=== PATIENT | female | born 1990 | race Caucasian/White ===

== ENCOUNTER 2017-12-25 13:01 | Outpatient (CLI) | payer MEDICAID ==
[~2017-12-25] VITALS: Ht 165.1 cm; Wt 90.9 kg
[~2017-12-25 13:01] MED LIST: BIRTH CONTROL
[2017-12-25 13:25] VITALS: BP 105/57
[2017-12-25] MEDS ORDERED: PREN1TAB60 PO (16:49)
== END 2017-12-25 17:04 ==
LOC: LDOP 13:01
PROVIDERS: ATTEND Obstetrics & Gynecology
DX: O46.92 Antepartum hemorrhage, unspecified, second trimester (principal); Z3A.23 23 weeks gestation of pregnancy
CPT/HCPCS: 59025; 76815; 99201; G0463

== ENCOUNTER 2018-04-16 13:40 | Inpatient (IN) | payer MEDICAID ==
[~2018-04-16] VITALS: Ht 162.6 cm; Wt 105.0 kg
[~2018-04-16 13:40] MED LIST changes: +PREN1TAB60 PO
[2018-04-16] MEDS ORDERED: LACTATED RINGERS 1,000 ML IV SCH ×3 (14:02→16:08)
[2018-04-16] MEDS ORDERED: OXYTOCIN 30U/ 0.9% NaCL 500ML 500 ML IV SCH (14:02)
[2018-04-16] MEDS ORDERED: NEWBORN KIT ONE (14:05)
[2018-04-16] MEDS ORDERED: METOCLOPRAMIDE 5 MG/ML, 2ML ONE (14:28)
[2018-04-16] MEDS ORDERED: SODIUM CITRATE/CITRIC ACID 30 ML UDC ONE (14:28)
[2018-04-16] MEDS ORDERED: OXYTOCIN 30U/ 0.9% NaCL 500ML 500 ML ONE (14:29)
[2018-04-16] MEDS ORDERED: SODIUM CITRATE/CITRIC ACID 30 ML UDC PO ONE (14:30)
[2018-04-16] MEDS ORDERED: METOCLOPRAMIDE 5 MG/ML, 2ML IV ONE (14:30)
[2018-04-16] MEDS ORDERED: LACTATED RINGERS 1,000 ML IVBOLUS ONE (14:30)
[2018-04-16 14:37] LABS: BASOPHILS # (AUTO) 0.04 x10^3/uL (0-0.1); BASOPHILS % (AUTO) 0 % (0-1); EOSINOPHILS # (AUTO) 0.04 x10^3/uL (0-0.4); EOSINOPHILS % (AUTO) 0 % (1-7); LYMPHOCYTES # (AUTO) 2.88 x10^3/uL (1-3.4); LYMPHOCYTES % (AUTO) 25 % (22-44); MD NO; MEAN CORPUSCULAR HEMOGLOBIN 27.4 pg (27.0-34.8); MEAN CORPUSCULAR HGB CONC 32.8 g/dL (32.4-35.8); MEAN CORPUSCULAR VOLUME 83.6 fL (80-100); MEAN PLATELET VOLUME 8.5 fL (7.4-10.4); MONOCYTES # (AUTO) 0.66 x10^3/uL (0.2-0.8); MONOCYTES % (AUTO) 6 % (2-9); NEUTROPHILS # (AUTO) 7.75 x10^3/uL (1.8-6.8); NEUTROPHILS % (AUTO) 68 % (42-75); PLATELET COUNT 270 x10^3/uL (130-400); RED BLOOD COUNT 3.47 x10^6/uL (3.82-5.3); RED CELL DISTRIBUTION WIDTH 13.7 % (9.6-15.2)
[2018-04-16 14:54] LABS: AMPHETAMINE SCREEN, URINE Negative (Negative); BARBITURATE SCREEN, URINE Negative (Negative); BENZODIAZEPINE SCREEN, URINE Negative (Negative); CANNABINOID SCREEN, URINE Positive (Negative); COCAINE SCREEN, URINE Negative (Negative); METHADONE SCREEN, URINE Negative (Negative); OPIATE SCREEN, URINE Negative (Negative)
[2018-04-16 15:24] VITALS: BP 111/71
[2018-04-16] MEDS: LACTATED RINGERS 1,000 ML IV SCH (16:08)
[2018-04-16] MEDS: OXYTOCIN 30U/ 0.9% NaCL 500ML 500 ML IV SCH (16:08)
[2018-04-16] MEDS ORDERED: GLYCOPYRROLATE 0.2MG/1ML, 5ML ONE (16:15)
[2018-04-16] MEDS ORDERED: ONDANSETRON 2MG/ML, 2ML ONE (16:15)
[2018-04-16] MEDS ORDERED: PHENYLEPHRINE 10 MG/ML ONE (16:15)
[2018-04-16] MEDS ORDERED: ACETAMINOPHEN 325 MG TABLET PO PRN ×2 (16:30)
[2018-04-16] MEDS ORDERED: MEASLES,MUMPS&RUBELLA VACC/PF 0.5 ML SQ-VACC PRN (16:30)
[2018-04-16] MEDS ORDERED: CALCIUM CARBONATE 500 MG TAB.CHEW PO PRN (16:30)
[2018-04-16] MEDS ORDERED: ONDANSETRON 2MG/ML, 2ML IV PRN (16:30)
[2018-04-16] MEDS ORDERED: morphine SULFATE 10 MG/ML, 1ML IVPush PRN ×2 (16:30)
[2018-04-16] MEDS ORDERED: OXYcodone/APAP 5/325MG TABLET PO PRN (16:30)
[2018-04-16] MEDS ORDERED: DIPH,PERTUSS(ACELL),TET VAC/PF NC IM-VACC PRN (16:30)
[2018-04-16] MEDS ORDERED: MISOPROSTOL 200 MCG TABLET PR PRN (16:30)
[2018-04-16] MEDS ORDERED: RHOGAM FROM BLOOD BANK 1 NOTE EA IM/IV ONE (16:30)
[2018-04-16] MEDS ORDERED: MEPERIDINE/PF 50 MG/ML ONE (17:26)
[2018-04-16] MEDS ORDERED: MEPERIDINE/PF 25MG/0.5ML IVPush PRN ×2 (17:30)
[2018-04-16] MEDS ORDERED: KETOROLAC 30 MG/1 ML ONE (18:07)
[2018-04-16] MEDS ORDERED: OXYcodone 5 MG/5 ML ORAL.SOL UDC ONE (18:08)
[2018-04-16] MEDS: KETOROLAC 30 MG/1 ML IV SCH (18:09)
[2018-04-16] MEDS ORDERED: OXYcodone 5 MG/5 ML ORAL.SOL UDC PO PRN (18:30)
[2018-04-16 19:36] VITALS: BP 125/85
[2018-04-16] MEDS: DOCUSATE 100 MG CAPSULE PO PRN (23:05)
[2018-04-16] MEDS: OXYcodone/APAP 5/325MG TABLET PO PRN (23:05)
[2018-04-17] MEDS: KETOROLAC 30 MG/1 ML IV SCH ×5 (00:22→23:13)
[2018-04-17 00:44] VITALS: BP 117/73
[2018-04-17] MEDS: OXYTOCIN 30U/ 0.9% NaCL 500ML 500 ML IV SCH ×2 (02:08→12:08)
[2018-04-17] MEDS: LACTATED RINGERS 1,000 ML IV SCH ×2 (02:08→12:08)
[2018-04-17] MEDS: OXYcodone/APAP 5/325MG TABLET PO PRN ×5 (04:39→23:14)
[2018-04-17 04:58] LABS: BASOPHILS # (AUTO) 0.04 x10^3/uL (0-0.1); BASOPHILS % (AUTO) 0 % (0-1); EOSINOPHILS # (AUTO) 0.03 x10^3/uL (0-0.4); EOSINOPHILS % (AUTO) 0 % (1-7); LYMPHOCYTES # (AUTO) 2.53 x10^3/uL (1-3.4); LYMPHOCYTES % (AUTO) 20 % (22-44); MD NO; MEAN CORPUSCULAR HEMOGLOBIN 28.1 pg (27.0-34.8); MEAN CORPUSCULAR VOLUME 85.2 fL (80-100); MONOCYTES # (AUTO) 0.72 x10^3/uL (0.2-0.8); MONOCYTES % (AUTO) 6 % (2-9); NEUTROPHILS # (AUTO) 9.66 x10^3/uL (1.8-6.8); NEUTROPHILS % (AUTO) 74 % (42-75); PLATELET COUNT 217 x10^3/uL (130-400); RED BLOOD COUNT 3.32 x10^6/uL (3.82-5.3); RED CELL DISTRIBUTION WIDTH 13.8 % (9.6-15.2)
[2018-04-17 05:00] VITALS: BP 112/73
[2018-04-17 06:55] VITALS: BP 117/78
[2018-04-17] MEDS: DOCUSATE 100 MG CAPSULE PO PRN (07:45)
[2018-04-17] MEDS: PRENATAL VIT/IRON/FA 1 EACH TABLET PO SCH (07:45)
[2018-04-17 12:30] VITALS: BP 136/85
[2018-04-17] MEDS: SIMETHICONE 80 MG CHEW TAB PO PRN (14:01)
[2018-04-17 14:50] VITALS: BP 135/85
[2018-04-17 19:15] VITALS: BP 115/75
[2018-04-18] MEDS: SIMETHICONE 80 MG CHEW TAB PO PRN ×2 (02:50→08:06)
[2018-04-18] MEDS: OXYcodone/APAP 5/325MG TABLET PO PRN ×3 (06:15→16:33)
[2018-04-18] MEDS: KETOROLAC 30 MG/1 ML IV SCH ×2 (06:15→12:59)
[2018-04-18 07:50] VITALS: BP 130/87
[2018-04-18] MEDS: DOCUSATE 100 MG CAPSULE PO PRN ×3 (08:06→19:54)
[2018-04-18] MEDS: PRENATAL VIT/IRON/FA 1 EACH TABLET PO SCH (08:23)
[2018-04-18] MEDS: IBUPROFEN 600 MG TABLET PO PRN (19:54)
[2018-04-18 21:00] VITALS: BP 121/78
[2018-04-19] MEDS: OXYcodone/APAP 5/325MG TABLET PO PRN ×3 (00:05→09:09)
[2018-04-19] MEDS: IBUPROFEN 600 MG TABLET PO PRN ×2 (02:43→09:08)
[2018-04-19 09:00] VITALS: BP 137/90
[2018-04-19] MEDS: PRENATAL VIT/IRON/FA 1 EACH TABLET PO SCH (09:00)
[2018-04-19] MEDS: DOCUSATE 100 MG CAPSULE PO PRN (09:08)
[2018-04-19] MEDS ORDERED: OXYC-302 PO (13:35)
[2018-04-19] MEDS ORDERED: IBUP-1222 PO (13:35)
== END 2018-04-19 17:03 | disposition home or self-care (01) | DRG 788 ==
LOC: LDIP 13:41 → 2NW 19:20
PROVIDERS: ADMIT Obstetrics & Gynecology; ATTEND Obstetrics & Gynecology
PROC: 10D00Z1 Extraction of Products of Conception, Low, Open Approach (ICD-10-PCS; principal; 2018-04-16)
DX: O34.211 Maternal care for low transverse scar from previous cesarean delivery (principal); Z37.0 Single live birth; Z3A.39 39 weeks gestation of pregnancy
CPT/HCPCS: 36415; J3490; 80307; 82803; 85025; 86850; 86900; 88307; G0378; J1885; J2175; J2405; J2370; J7120